=== PATIENT | male | born 1970 | race Caucasian/White ===

== ENCOUNTER 2019-10-14 17:50 | Emergency (ER) | payer SELFPAY ==
[2019-10-14 17:56] VITALS: BP 125/79; PULSE 67; RESP 20; TEMP 37.1; O2SAT 98
--- NOTE | 2019-10-14 18:22 | W.ED.GENAD ---
Discharge Plan Disposition Patient Disposition: HOME Condition: Good Discharge Details Chief Complaint: FlankPain Clinical Impression: Ureterolithiasis Primary Care Provider: None,None ED Provider: Rosemarie Spain Home Meds and New Rx's Prescriptions: Continued famotidine 20 mg Tablet 20 mg PO DAILY RF: 0 colchicine 0.6 mg Tablet 0.6 mg PO DAILY PRN (Reason: Flare up of Gout) RF: 0 Discharge Instructions Instructions: Kidney Stones (ED), How to Strain Your Urine (ED) Additional Instructions: Drink plenty of fluids and get plenty of rest. Alternate tylenol and motrin as needed and directed for pain. Take oxycodone for pain not relieved with Tylenol and Motrin. Take Zofran as needed and directed for nausea and vomiting. Call urology on Thursday to schedule a follow-up appointment for reevaluation. Return to the emergency department with any worsening or new concerning symptoms such as fever, increased pain, persistent vomiting or any other concerns. Referrals: Haile Evangelista MD [ [facility] STAFF PHYSICIAN] - Discharge Data Discharge Date/Time-TO BE ENTERED AT DEPARTURE: 10/14/19 20:25 Discharge Physician: Rosemarie Spain Medical Decision Making 1800 -- 49-year-old male with no previous history of kidney stones who presents with right flank pain and brown-colored urine since 1130 this morning. Denies fever, nausea, vomiting, abdominal pain. Vitals within normal limits. He appears comfortable and nontoxic. His abdomen is soft but minimally tender across lower quadrants and epigastric region. No CVA tenderness bilaterally. Suspect most likely kidney stone. Will check screening labs, urinalysis and CT renal colic. Will give IV fluids. Patient declines medication for pain or nausea. 2009 -- Labs and imaging reviewed. Normal white blood cell count. Creatinine 1.63. Urinalysis notes blood but no evidence of infection. CT notes 4 mm stone with mild hydronephrosis on right side. Patient reassessed and he has no acute complaints and feels comfortable to go home. Pt given oxycodone and zofran to go. Prescription for flomax called into [facility]'s pharmacy in [place]. Advised to follow up with urology for re-evaluation. Patient placed on urology follow-up list. Usual and customary return precautions given prior to discharge. Medical Records Medical records reviewed: Yes I reviewed the patient's medical records. Imaging Data Radiologic Study: Radiologist's impression: CT Abdomen And Pelvis Without Contrast Exam date and time: 10/14/2019 7:14 PM Age: 49 years old Clinical indication: Other: R flank pain, R/O kidney stone; Prior surgery; Surgery date: 6+ months; Surgery type: Hernia repair \T\ appendectomy TECHNIQUE: Imaging protocol: Computed tomography of the abdomen and pelvis without contrast. Radiation optimization: All CT scans at this facility use at least one of these dose optimization techniques: automated exposure control; mA and/or kV adjustment per patient size (includes targeted exams where dose is matched to clinical indication); or iterative reconstruction. COMPARISON: No relevant prior studies available. FINDINGS: Liver: Unremarkable. Gallbladder and bile ducts: Unremarkable. No biliary dilation. Pancreas: Unremarkable. Spleen: Unremarkable. Adrenals: Unremarkable. Kidneys and ureters: Mild right hydronephrosis. Nonobstructing right renal calculi. A 4 mm calculus is seen in the right ureteropelvic junction. Stomach and bowel: No bowel obstruction. Appendix: The appendix is not seen. Intraperitoneal space: No free air. No significant fluid collection. Vasculature: No aortic aneurysm. Lymph nodes: No pathologically enlarged lymph nodes. Bladder: Unremarkable as visualized. Reproductive: Calcification is seen in the prostate. Bones/joints: No acute fracture. No destructive bone lesion. Soft tissues: Unremarkable. IMPRESSION: 1. Mild right hydronephrosis secondary to a 4 mm right UPJ calculus. 2. Nonobstructing right renal calculi. Lab Data Lab results reviewed: Yes I reviewed the patient's lab results. Labs: Laboratory Tests Range/Units 10/14/19 10/14/19 10/14/19 18:23 18:23 18:53 WBC (4.4-10.8) 10^3/uL 5.97 RBC (4.36-5.78) 10^6/uL 4.78 Hgb (13.5-17.5) g/dL 15.7 Hct (40.0-50.0) % 44.0 MCV (80-95) fL 92.1 MCH (27.0-33.0) pg 32.8 MCHC (32.0-36.0) % 35.7 RDW (11.8-14.1) % 11.8 Plt Count (130-400) 10^3/uL 170 MPV (8.0-11.0) fL 11.2 H Immature Gran % 0.2 Neutrophils % 61.8 Lymphocytes % 28.3 Monocytes % 7.9 Eosinophils % 1.3 Basophils % 0.5 Nucleated RBC % % 0 Absolute Neutrophils (1.2-6.7) 10^3/uL 3.69 Absolute Lymphocytes (1.2-3.4) 10^3/uL 1.69 Absolute Monocytes (0.1-0.8) 10^3/uL 0.47 Absolute Eosinophils (0.0-0.7) 10^3/uL 0.08 Absolute Basophils (0.0-0.2) 10^3/uL 0.03 Sodium (136-145) mmol/L 138 Potassium (3.5-5.1) mmol/L 4.1 Chloride (98-107) mmol/L 104 Carbon Dioxide (21.0-32.0) mmol/L 27.3 Anion Gap (3-11) mmol/L 6.7 BUN (7-18) mg/dL 23 H Creatinine (0.70-1.30) mg/dL 1.63 H Estimated GFR/1.73 m2 (mL/min/1.73m2) 44.83 Glucose (74-106) mg/dL 85 Calcium (8.5-10.1) mg/dL 9.0 Total Bilirubin (0.2-1.0) mg/dL 0.3 AST (15-37) U/L 33 ALT (16-63) U/L 57 Alkaline Phosphatase (46-116) U/L 106 Total Protein (6.4-8.2) g/dL 7.1 Albumin (3.4-5.0) g/dL 3.7 Urine Color (Yellow) Yellow Urine Clarity (Clear) Cloudy Urine pH (5-8) 7.5 Ur Specific [place] (1.005-1.025) 1.025 Urine Protein (Negative) mg/dL Negative Urine Ketones (Negative) mg/dL Trace H Urine Blood (Negative) Large H Urine Nitrite (Negative) Negative Urine Bilirubin (Negative) Negative Urine Urobilinogen (Up TO 0.2) EU/dL 0.2 Ur Leukocyte Esterase (Negative) Negative Urine RBC (0-2) HPF >50 H Urine WBC Not Applicable Ur Epithelial Cells Not Applicable Urine Crystals Not Applicable Urine Bacteria Not Applicable Urine Mucus Not Applicable Ur Culture Indicated? No Urine Glucose (Negative) mg/dL Negative HPI General Mode of arrival: ambulatory. Date/Time Provider Initiated Documentation: 10/14/19 17:55. Limitations to Documentation: no limitations. Information obtained by: patient. HPI Narrative: Patient is a 49-year-old male presents for right-sided flank pain and brown-colored urine that started after 11:30 AM this morning. Patient states the pain is constant, aching without radiation and currently 6/10. He states he urinated a few times today and noted the urine had a brownish tint. He denies any fever, cough, chest pain, shortness of breath, abdominal pain, dysuria, frequency, urgency, leg pain, weakness or numbness. He has not taken any medication for symptoms. He denies any known previous history of kidney stones. Related Data Home Medications Medication Instructions Recorded Confirmed colchicine 0.6 mg PO DAILY PRN 10/14/19 10/14/19 famotidine 20 mg PO DAILY 10/14/19 10/14/19 Allergies Allergy/AdvReac Type Severity Reaction Status Date / Time No Known Allergies Allergy Unverified 10/14/19 18:35 General Stated Complaint: FlankPain JAROCHO: 3 Review of Systems All systems reviewed & are unremarkable except as noted in HPI and below Constitutional Constitutional: Reports as per HPI, Denies chills and Denies fever(s) Eyes Eyes: Denies blurry vision ENT Ears, Nose, Mouth, and Throat: Denies dizziness, Denies sore throat and Denies throat swelling Cardiovascular Cardiovascular: Denies chest pain and Denies dyspnea Respiratory Respiratory: Denies cough and Denies dyspnea Gastrointestinal Gastrointestinal: Denies abdominal pain, Denies diarrhea and Denies vomiting Genitourinary Genitourinary: Reports hematuria, Denies dysuria and Reports flank pain Musculoskeletal Musculoskeletal: Reports back pain and Denies numbness Integumentary/Breasts Skin/Breast: Denies lesions and Denies rash Neurologic Neurologic: Denies dizziness, Denies localized weakness and Denies numbness Allergic/Immunologic Allergic/Immunologic: Denies throat swelling [facility] Medical History (Updated 10/16/19 @ 05:42 by Rosemarie Spain DO) Gout (Chronic) Surgical History (Updated 10/14/19 @ 21:35 by Rosemarie Spain DO) History of appendectomy (Chronic) History of hernia repair (Chronic) Social History Smoking/Tobacco Use Status: Never Alcohol Intake: never Drug use: Never Do you feel safe at home: Yes Do you feel safe in your relationship?: Yes Exam Const General: cooperative, healthy appearing and no acute distress HENMT Head: normal to inspection Face and sinus: normal facial exam Eyes General: appearance normal, both eyes and all related structures EOM: EOM intact bilaterally Neck Neck: normal visual inspection and No submandibular swelling Lymphatic: no lymphadenopathy noted Chest Chest: normal inspection of the chest and no tenderness Resp Effort & Inspection: normal respiratory effort and able to speak in complete sentences Auscultation: clear to auscultation bilaterally Cardio Rate: regular rate Rhythm: regular rhythm GI Inspection: normal to inspection Palpation: soft, not firm, not rigid and nontender Auscultation: normal bowel sounds Back/Spine/Pelvis Other: Minimal right-sided flank tenderness Skin General skin exam: no rashes or lesions noted Neuro General: patient alert, patient awake and patient oriented x3 Cognition: normal cognition Speech: speech normal Motor: muscle tone normal throughout Sensory Exam: no sensory deficits noted Extrem General: normal to inspection, full ROM, capillary refill normal, no calf tenderness bilaterally and no edema Psych Appearance: grossly normal Mental Status: mental status grossly normal Speech and Movement: speech and movement normal Affect: normal affect Course Vital Signs Vital signs: Vital Signs Temperature 98.8 F 10/14/19 17:56 Pulse 67 10/14/19 17:56 Respiratory Rate 10/14/19 17:56 Blood Pressure 125/79 10/14/19 17:56 Pulse Oximetry 98 10/14/19 17:56 Temperature 98.8 F 10/14/19 17:56 Temperature Source Tympanic 10/14/19 17:56 Pulse 67 10/14/19 17:56 Respiratory Rate 10/14/19 17:56 Respiratory Effort 10/14/19 17:59 Blood Pressure 125/79 10/14/19 17:56 Pulse Oximetry 98 10/14/19 17:56 Oxygen Delivery Method Room Air 10/14/19 17:56 Oxygen Flow Rate 0 10/14/19 17:56 Pain Level 8 10/14/19 17:59
[2019-10-14 18:33] LABS: Abs Immature Grans 0.01 10^3/uL (0.0-0.06); Absolute Basophil Count 0.03 10^3/uL (0.0-0.2); Absolute Eosinophil Count 0.08 10^3/uL (0.0-0.7); Absolute Lymphocyte Count 1.69 10^3/uL (1.2-3.4); Absolute Monocyte Count 0.47 10^3/uL (0.1-0.8); Absolute Neutrophil Count 3.69 10^3/uL (1.2-6.7); Basophils % 0.5; Eosinophils % 1.3; HGB 15.7 g/dL (13.5-17.5); Immature Grans % 0.2; Lymphocytes % 28.3; MCH 32.8 pg (27.0-33.0); MCHC 35.7 % (32.0-36.0); MCV 92.1 fL (80-95); MPV 11.2 fL (8.0-11.0); Monocytes % 7.9; Neutrophils % 61.8; Nucleated RBC 0 %; Platelet Count 170 10^3/uL (130-400); RBC 4.78 10^6/uL (4.36-5.78); RDW 11.8 % (11.8-14.1); RDW-SD 39.5 fL; WBC 5.97 10^3/uL (4.4-10.8)
[2019-10-14] MEDS: Normal Saline 1,000 ML 1000 ML IV (18:34)
[2019-10-14 18:50] LABS: ALT 57 U/L (16-63); AST 33 U/L (15-37); Albumin 3.7 g/dL (3.4-5.0); Alkaline Phosphatase 106 U/L (46-116); Anion Gap 6.7 mmol/L (3-11); BUN 23 mg/dL (7-18); Bilirubin, Total 0.3 mg/dL (0.2-1.0); CO2 27.3 mmol/L (21.0-32.0); CREATININE 1.63 mg/dL (0.70-1.30); Chloride 104 mmol/L (98-107); Estimated GFR 44.83 (mL/min/1.73m2); Glucose 85 mg/dL (74-106); Potassium 4.1 mmol/L (3.5-5.1); Sodium 138 mmol/L (136-145); Total Protein 7.1 g/dL (6.4-8.2)
[2019-10-14 18:58] LABS: Bilirubin Negative (Negative); Blood Large (Negative); Clarity Cloudy (Clear); Glucose Negative (Negative); Ketones Trace mg/dL (Negative); Leukocyte Esterase Negative (Negative); Nitrite Negative (Negative); Specific Gravity 1.025 (1.005-1.025); Urobilinogen 0.2 EU/dL (Up TO 0.2); pH 7.5 (5-8)
[2019-10-14 19:11] LABS: C & S Indicated? No; RBC >50 HPF (0-2)
--- NOTE | 2019-10-14 19:15 | DI.CT_ITS ---
EXAM: CT RENAL COLIC WO CLINICAL HISTORY: R flank pain, r/o kidney stone. TECHNIQUE: Imaging Protocol: Axial computed tomography images with coronal and sagittal reformatted images were created and reviewed. CONTRAST MATERIAL: Noncontrast COMPARISON: No exams were available for comparison FINDINGS: ABDOMEN: Lung Bases: Normal where visualized. Liver: Normal density. No measurable mass. Gallbladder and biliary tract: No radiodense calculus or dilation. Pancreas: Normal density, no abnormal calcifications or inflammatory process. Spleen: Normal. Kidneys: There is a 4 millimeter stone at the right ureteropelvic junction causing mild right hydrone phrosis. Additional small nonobstructing right renal calculi are seen. There are no left-sided calc ifications. No bladder calcifications are identified. No masses seen. Adrenal glands: No masses seen. Abdominal Aorta: Abdominal portion non-dilated. PELVIS: Bladder: Symmetric distention, no gross wall thickening. Prostate is normal in size and shows a few calcifications. Bowel: No obstruction or bowel wall thickening. Peritoneal cavity: No ascites, collection or mesenteric inflammatory response. Bones: Mild degenerative disc changes. IMPRESSION: 4 millimeter stone in the right ureteropelvic junction causing mild hydronephrosis. Additional nonob structing right renal calculi. RADIATION DOSE DELIVERED: Total DLP DATA REPOSITORY: All CT scans at this facility are submitted to the National Radiology Data Registry (NRDR) Dose Index Registry (DIR) with the [employer] ([employer]). RADIATION OPTIMIZATION: All CT scans at this facility use at least one of these dose optimization te chniques: automated exposure control; mA and/or kV adjustment per patient size (includes targeted exa ms where dose is matched to clinical indication); or iterative reconstruction.
--- NOTE | 2019-10-14 19:45 | DI.VRAD_ITS ---
PROCEDURE INFORMATION: Exam: CT Abdomen And Pelvis Without Contrast Exam date and time: 10/14/2019 7:14 PM Age: 49 years old Clinical indication: Other: R flank pain, R/O kidney stone; Prior surgery; Surgery date: 6+ months; Surgery type: Hernia repair \T\ appendectomy TECHNIQUE: Imaging protocol: Computed tomography of the abdomen and pelvis without contrast. Radiation optimization: All CT scans at this facility use at least one of these dose optimization techniques: automated exposure control; mA and/or kV adjustment per patient size (includes targeted exams where dose is matched to clinical indication); or iterative reconstruction. COMPARISON: No relevant prior studies available. FINDINGS: Liver: Unremarkable. Gallbladder and bile ducts: Unremarkable. No biliary dilation. Pancreas: Unremarkable. Spleen: Unremarkable. Adrenals: Unremarkable. Kidneys and ureters: Mild right hydronephrosis. Nonobstructing right renal calculi. A 4 mm calculus is seen in the right ureteropelvic junction. Stomach and bowel: No bowel obstruction. Appendix: The appendix is not seen. Intraperitoneal space: No free air. No significant fluid collection. Vasculature: No aortic aneurysm. Lymph nodes: No pathologically enlarged lymph nodes. Bladder: Unremarkable as visualized. Reproductive: Calcification is seen in the prostate. Bones/joints: No acute fracture. No destructive bone lesion. Soft tissues: Unremarkable. IMPRESSION: 1. Mild right hydronephrosis secondary to a 4 mm right UPJ calculus. 2. Nonobstructing right renal calculi. Dictated and Authenticated by: Mars Mclean MD. Ordering:STEFANIE Houston MD
[2019-10-14] MEDS: Ondansetron O.D.T. 4 MG TABEF, 3 TABS/BTL PO (20:18)
[2019-10-14 20:24] VITALS: BP 127/72; PULSE 64; RESP 16; TEMP 37.1; O2SAT 99
--- NOTE | 2019-10-15 04:15 | NUR.NOTE ---
Referral faxed to Urology for follow up care regarding to days visit. Nursing Note:
== END 2019-10-14 20:25 | disposition home or self-care (01) ==
LOC: ER 20:27
PROVIDERS: Emergency Provider Physician Assistant
DX: N13.2 Hydronephrosis with renal and ureteral calculous obstruction (principal)
CPT/HCPCS: 36415; 80053; 96360; 96361; 99284; 74176; 81003; 81015; 85025; 99285